=== PATIENT | male | born 1975 | race Two or more races ===

== ENCOUNTER 2020-01-10 09:33 | Inpatient (IN) | payer OTHER ==
--- OUTSIDE RECORDS SUMMARY | 2020-01-10 09:38 | XMS ---
:1975 Author Organization [facility] Support Name Relationship Address Phone LEEANN FLORES SELF / SAME PATIENT [phone] [place] [address] Re-disclosure Warning The records that you are about to access may contain information from federally- assisted alcohol or drug abuse programs. If such information is present, then the following federally mandated warning applies: This information has been disclosed to you from records protected by federal confidentiality rules (42 CFR part 2). The federal rules prohibit you from making any further disclosure of this information unless further disclosure is expressly permitted by the written consent of the person to whom it pertains or as otherwise permitted by 42 CFR part 2. A general authorization for the release of medical or other information is NOT sufficient for this purpose. The Federal rules restrict any use of the information to criminally investigate or prosecute any alcohol or drug abuse patient.The records that you are about to access may contain highly sensitive health information, the redisclosure of which is protected by Article 27-F of the [facility] Public Health law. If you continue you may haveaccess to information: Regarding HIV / AIDS; Provided by facilities licensed or operated by the [facility] Office of Mental Health; or Provided by the [facility] Office for People With Developmental Disabilities. If such information is present, then the following [facility] mandated warning applies: This information has been disclosed to you from confidential records which are protected by state law. State law prohibits you from making any further disclosure of this information without the specific written consent of the person to whom it pertains, or as otherwise permitted by law. Any unauthorized further disclosure in violation of state law may result in a fine or fci sentence or both. A general authorization for the release of medical or other information is NOT sufficient authorization for further disclosure. Insurance Providers Payer name Policy type Policy ID Covered Covered constitution party's Policy P janelle / Coverage constitution party ID relationship to Bradley Inf ormation type bradley MARKIE [id number] HEALTH NON CAP
--- NOTE | 2020-01-10 11:57 | BHS.RME ---
Substance Use & Tx History - Substance Use History Heroin Substance amount: 20 bags Frequency of use: Daily Substance route: Injection (ex: intravenous or skin popping) Date of Last Use: 01/09/20 Cocaine- Powder Substance amount: 7-8 bags Frequency of use: Daily Substance route: Injection (ex: intravenous or skin popping) Date of Last Use: 01/09/20 Alcohol Substance amount: 1pint vodka Frequency of use: Daily Substance route: Oral Date of Last Use: 01/09/20 - Last Treatment Date of last treatment: 2009 Where was last treatment: Detox Physical/Psych/Mental Status - Behavior General Behavior: Increased activity (restlessness, agitation) Eye Contact: Normal Other Behaviors: Mannerisms - Cooperativeness Cooperativeness: Cooperative - Thinking Thought Processes: Tight, Logical, Goal Directed Thought content: Future oriented - Physical Health Problems Is patient presently having any pain?: Yes Does patient presently have any injuries (include location): No Does patient currently have a fever: No CIWA Nausea/Vomitin Muscle Tremors: 2 Anxiety: 2 Agitation: 2 Paroxysmal Sweats: 1-Minimal Palms Moist Orientation: 0-Oriented Tacttile Disturbances: 1-Very Mild Itch/Numbness Auditory Disturbances: 0-None Visual Disturbances: 1-Very Mild Sensitivity Headache: 2-Mild CIWA-Ar Total Score: 13
--- NOTE | 2020-01-10 12:01 | HP ---
CIWA Score Nausea/Vomitin Muscle Tremors: 2 Anxiety: 2 Agitation: 2 Paroxysmal Sweats: 1-Minimal Palms Moist Orientation: 0-Oriented Tacttile Disturbances: 1-Very Mild Itch/Numbness Auditory Disturbances: 0-None Visual Disturbances: 1-Very Mild Sensitivity Headache: 2-Mild CIWA-Ar Total Score: 13 - Admission Criteria OASAS Guidelines: Admission for Medically Managed Detox: Requires at least one of the followin. CIWA greater than 12 2. Seizures within the past 24 hours 3. Delirium tremens within the past 24 hours 4. Hallucinations within the past 24 hours 5. Acute intervention needed for co occurring medical disorder 6. Acute intervention needed for co occurring psychiatric disorder 7. Severe withdrawal that cannot be handled at a lower level of care (continued vomiting, continued diarrhea, abnormal vital signs) requiring intravenous medication and/or fluids 8. Patient presents the following: CIWA greater than 12 Admission Criteria Met: Admission criteria met Admission ROS S - HPI Chief Complaint: Alcohol withdrawal Allergies/Adverse Reactions: Allergies Allergy/AdvReac Type Severity Reaction Status Date / Time No Known Allergies Allergy Verified 01/10/20 12:15 History of Present Illness: Patient is on methadone maintenance 170mg but has been using 20 bags of heroin intravenously daily, today, he presents for alcohol detox. Patient reports he was given a take home bottle for today but he went to [facility] last nigh t for alcohol intoxication so he missed taking his dose today. He denies h/o OD. He reports blackout a longtime ago, denies seizures. Exam Limitations: No Limitations - Ebola screening Have you traveled outside of the country in the last 21 days: No - Review of Systems Constitutional: Chills, Unintentional Wgt. Loss EENT: reports: Blurred Vision, Recent change in vision Respiratory: reports: No Symptoms reported Cardiac: reports: No Symptoms Reported GI: reports: Nausea, Abdominal cramping : reports: No Symptoms Reported Musculoskeletal: reports: Back Pain, Joint Pain, Muscle Pain, Muscle Weakness Integumentary: reports: Sweating Neuro: reports: Headache, Tremors Endocrine: reports: No Symptoms Reported Hematology: reports: No Symptoms Reported Psychiatric: reports: Anxious, Depressed Other Systems: Reviewed and Negative Patient History - Patient Medical History Hx Anemia: No Hx Asthma: No Hx Chronic Obstructive Pulmonary Disease (COPD): No Hx Cancer: No Hx Cardiac Disorders: No Hx Congestive Heart Failure: No Hx Hypertension: No Hx Hypercholesterolemia: No Hx Pacemaker: No HX Cerebrovascular Accident: No Hx Seizures: No Hx Dementia: No Hx Diabetes: No Hx Gastrointestinal Disorders: No Hx Liver Disease: Yes Hx Genitourinary Disorders: No Hx Sexually Transmitted Disorders: No Hx Renal Disease (ESRD): No Hx Thyroid Disease: No Hx Human Immunodeficiency Virus (HIV): No Hx Hepatitis C: Yes Hx Depression: Yes Hx Suicide Attempt: No Hx Bipolar Disorder: Yes Hx Schizophrenia: Yes - Patient Surgical History Past Surgical History: No - PPD History Previous Implant?: Yes Documented Results: Negative w/o proof Implanted On Prior [facility] Admission?: No PPD to be Administered?: Yes - Smoking Cessation Smoking history: Current every day smoker Have you smoked in the past 12 months: Yes Aproximately how many cigarettes per day: 20 Hx Chewing Tobacco Use: No Initiated information on smoking cessation: Yes 'Breaking Loose' booklet given: 01/10/20 - Substances abused Heroin Substance route: Injection Frequency: Daily Amount used: 2 bundles Age of first use: 20 Date of last use: 01/09/20 Alcohol Substance route: Oral Frequency: Daily Amount used: vodk- 1pt Age of first use: 21 Date of last use: 01/09/20 Cocaine Substance route: Injection Frequency: Daily Amount used: $60 Age of first use: 20 Date of last use: 01/09/20 Admission Physical Exam BHS - Physical General Appearance: Yes: No Apparent Distress HEENTM: Yes: Hearing grossly Normal, Normocephalic, Pharynx Normal Respiratory: Yes: Chest Non-Tender, Lungs Clear, Normal Breath Sounds, No Respiratory Distress Neck: Yes: No masses,lesions,Nodules, Supple Breast: Yes: Breast Exam Deferred Cardiology: Yes: Regular Rhythm, Regular Rate, S1, S2 Abdominal: Yes: Normal Bowel Sounds, Non Tender, Soft Genitourinary: Yes: Within Normal Limits Back: Yes: Normal Inspection Musculoskeletal: Yes: full range of Motion, Gait Steady, Pelvis Stable, Back pain, Other (RLE scar) Extremities: Yes: Tremors Neurological: Yes: resin painter II-XII NML intact, Fully Oriented, Alert, Motor Strength 5/5, Normal Mood/Affect, Normal Response Integumentary: Yes: Cold, Track [place] Lymphatic: Yes: Within Normal Limits - Diagnostic (1) Alcohol dependence with withdrawal, uncomplicated Current Visit: Yes Status: Acute (2) Nicotine dependence with withdrawal Current Visit: Yes Status: Acute (3) Methadone maintenance therapy patient Current Visit: Yes Status: Chronic (4) Cocaine abuse Current Visit: Yes Status: Acute (5) Marijuana abuse Current Visit: Yes Status: Acute (6) Hep C w/o coma, chronic Current Visit: Yes Status: Chronic Cleared for Admission S - Detox or Rehab [facility] Level of Care: Medically Managed Detox Regimen/Protocol: Librium Claeared for Rehab Admission: No Breathalyzer - Breathalyzer Breathalyzer: 0 Urine Drug Screen - Test Device Lot number: [id number] Expiration date: 07/28/21 - Control Is test valid?: Yes - Results Drug screen NEGATIVE: No Urine drug screen results: THC-Marijuana, VITALIY-Cocaine, FEN-Fentanyl, MOP- Opiates, MTD-Methadone Inpatient Rehab Admission - Rehab Decision to Admit Inpatient rehab admission?: No
[2020-01-10] MEDS ORDERED: MAGNESIUM HYDROX 2400MG/30ML ORAL SUSPENSION 30 ML CUP PO PRN (12:34)
[2020-01-10] MEDS ORDERED: MAG HYDROX/AL HYDROX/SIMETH 30 ML UNIT-DOSE CUP PO PRN (12:34)
[2020-01-10] MEDS ORDERED: MAGNESIUM CITRATE 300 ML BOTTLE PO PRN (12:34)
[2020-01-10] MEDS ORDERED: ACETAMINOPHEN 325 MG TABLET (FP) PO PRN ×2 (12:34)
[2020-01-10] MEDS ORDERED: NICOTINE POLACRILEX 2 MG GUM BUC PRN (12:34)
[2020-01-10] MEDS ORDERED: BISMUTH SUBSALICYLATE 524 MG/30 ML UD PO PRN (12:34)
[2020-01-10] MEDS ORDERED: ONDANSETRON *ODT* 4 MG TABLET SL PRN (12:34)
[2020-01-10] MEDS ORDERED: METHOCARBAMOL 500 MG TABLET PO PRN (12:34)
[2020-01-10] MEDS ORDERED: MENTHOL/PHENOL 1 EACH UD MM PRN (12:34)
[2020-01-10] MEDS ORDERED: IBUPROFEN 400 MG TABLET (FP) PO PRN (12:34)
[2020-01-10 12:35] VITALS: BMI 31.4
--- OUTSIDE RECORDS SUMMARY | 2020-01-10 12:36 | XMS ---
:1975 Author Organization [facility] Support Name Relationship Address Phone LEEANN FLORES SELF / SAME PATIENT [phone] [place] [address] Re-disclosure Warning The records that you are [...] is protected by Article 27-F of the [facility] Public Health law. If you continue you may haveaccess to information: Regarding HIV / AIDS; Provided by facilities licensed or operated by the [facility] Office of Mental Health; or Provided by the [facility] Office for People With Developmental Disabilities. If such information is present, then the following [facility] mandated warning applies: This information has [...] law may result in a fine or longterm sentence or both. A general authorization for the release of medical or other information is NOT sufficient authorization for further disclosure. Insurance Providers Payer name Policy type Policy ID Covered Covered green party's Policy P janelle / Coverage green party ID relationship to Bradley Inf ormation type bradley MARKIE [id number] HEALTH NON CAP
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
[2020-01-10] MEDS: chlordiazePOXIDE HCL 25 MG CAPSULE PO PRN (14:03)
[2020-01-10] MEDS ORDERED: METHADONE HCL 10 MG TABLET PO ONE (14:13)
[2020-01-10] MEDS: hydrOXYzine PAMOATE 25 MG CAPSULE (FP) PO PRN (18:05)
[2020-01-10] MEDS: chlordiazePOXIDE HCL 25 MG CAPSULE PO SCH ×2 (18:05→22:18)
[2020-01-10] MEDS: QUEtiapine FUMARATE 200 MG TABLET PO SCH (22:18)
[2020-01-10] MEDS: THIAMINE HCL 100 MG TABLET (FP) PO SCH (22:18)
[2020-01-10] MEDS: MELATONIN 5 MG TABLETS PO SCH (22:18)
[2020-01-10] MEDS: SUVOREXANT 10 MG TABLET PO PRN (22:19)
[2020-01-11] MEDS ORDERED: METHADONE HCL 10 MG TABLET ONE (04:24)
[2020-01-11] MEDS ORDERED: METHADONE HCL 40 MG DISPERSABLE TABLET ONE (04:24)
[2020-01-11] MEDS ORDERED: METHADONE HCL 40 MG DISPERSABLE TABLET PO SCH (06:00)
[2020-01-11] MEDS: METHADONE 160 MG, METHADONE 10 MG PO SCH (06:08)
[2020-01-11] MEDS: chlordiazePOXIDE HCL 25 MG CAPSULE PO SCH ×4 (06:09→22:14)
--- NOTE | 2020-01-11 09:25 | PN ---
[facility] CIWA - CIWA Score Nausea/Vomitin-Mild Nausea/No Vomiting Muscle Tremors: 2 Anxiety: 2 Agitation: 2 Paroxysmal Sweats: No Perspiration Orientation: 0-Oriented Tacttile Disturbances: 1-Very Mild Itch/Numbness Auditory Disturbances: 0-None Visual Disturbances: 0-None Headache: 2-Mild CIWA-Ar Total Score: 10 S Progress Note (SOAP) Subjective: alert,irritable,anxious,interrupted sleep,aching pain in the body and back Objective: 01/11/20 13:29 Vital Signs Temperature 97.3 F L 01/11/20 12:35 Pulse Rate 83 01/11/20 12:35 Respiratory Rate 18 01/11/20 12:35 Blood Pressure 88/49 L 01/11/20 12:35 O2 Sat by Pulse Oximetry (%) 99 01/11/20 12:35 Laboratory Last Values WBC 5.5 K/mm3 (4.0-10.0) 01/11/20 08:30 RBC 4.32 M/mm3 (4.00-5.60) 01/11/20 08:30 Hgb 12.1 GM/dL (11.7-16.9) 01/11/20 08:30 Hct 36.2 % (35.4-49) 01/11/20 08:30 MCV 83.9 fl (80-96) 01/11/20 08:30 MCH 28.0 pg (25.7-33.7) 01/11/20 08:30 MCHC 33.4 g/dl (32.0-35.9) 01/11/20 08:30 RDW 13.4 % (11.9-15.9) 01/11/20 08:30 Plt Count 304 K/MM3 (134-434) 01/11/20 08:30 MPV 8.5 fl (7.5-11.1) 01/11/20 08:30 Sodium 144 mmol/L (136-145) 01/11/20 08:30 Potassium 4.3 mmol/L (3.5-5.1) 01/11/20 08:30 Chloride 111 mmol/L (98-107) H 01/11/20 08:30 Carbon Dioxide 26 mmol/L (21-32) 01/11/20 08:30 Anion Gap 7 MMOL/L (8-16) L 01/11/20 08:30 BUN 15.3 mg/dL (7-18) 01/11/20 08:30 Creatinine 0.9 mg/dL (0.55-1.3) 01/11/20 08:30 Est GFR (CKD-EPI)AfAm 121.67 01/11/20 08:30 Est GFR (CKD-EPI)NonAf 104.98 01/11/20 08:30 Random Glucose 101 mg/dL (74-106) 01/11/20 08:30 Calcium 8.7 mg/dL (8.5-10.1) 01/11/20 08:30 Total Bilirubin 0.2 mg/dL (0.2-1) 01/11/20 08:30 AST 53 U/L (15-37) H 01/11/20 08:30 ALT 86 U/L (13-61) H 01/11/20 08:30 Alkaline Phosphatase 79 U/L (45-117) 01/11/20 08:30 Total Protein 7.2 g/dl (6.4-8.2) 01/11/20 08:30 Albumin 3.3 g/dl (3.4-5.0) L 01/11/20 08:30 Syphilis Serology Non-reactive (NONREACTIVE) 01/10/20 08:30 HIV Ag/Ab Combo Qual Negative (NEGATIVE) 01/11/20 08:30 Assessment: 01/11/20 13:30 withdrawal symptom Plan: continue detox librium regimen,continue methadone 170 mgs po daily methadone maintenance
[2020-01-11] MEDS: FLUoxetine HCL 20 MG CAPSULE PO SCH (10:16)
[2020-01-11] MEDS: PRENATAL VITAMINS W/ FOLIC ACID TABLET (FP) PO SCH (10:17)
[2020-01-11] MEDS: NICOTINE 7 MG/24 HOURS TOPICAL PATCH TD SCH (10:18)
[2020-01-11 12:24] LABS: HEMATOCRIT 36.2 % (35.4-49); HEMOGLOBIN 12.1 GM/dL (11.7-16.9); MCHC 33.4 g/dl (32.0-35.9); MEAN CELL VOLUME 83.9 fl (80-96); MEAN PLT VOLUME 8.5 fl (7.5-11.1); PLATELET COUNT 304 K/MM3 (134-434); RBC 4.32 M/mm3 (4.00-5.60); RDW 13.4 % (11.9-15.9); WHITE BLOOD COUNT 5.5 K/mm3 (4.0-10.0)
[2020-01-11 12:55] LABS: ALBUMIN 3.3 g/dl (3.4-5.0); BILIRUBIN,TOTAL 0.2 mg/dL (0.2-1); BLOOD UREA NITROGEN 15.3 mg/dL (7-18); CALCIUM 8.7 mg/dL (8.5-10.1); CREATININE 0.9 mg/dL (0.55-1.3); POTASSIUM 4.3 mmol/L (3.5-5.1); TOT PROT 7.2 g/dl (6.4-8.2)
[2020-01-11] MEDS: chlordiazePOXIDE HCL 25 MG CAPSULE PO PRN (14:48)
[2020-01-11] MEDS: hydrOXYzine PAMOATE 25 MG CAPSULE (FP) PO PRN (17:19)
[2020-01-11] MEDS: SUVOREXANT 10 MG TABLET PO PRN (22:14)
[2020-01-11] MEDS: MELATONIN 5 MG TABLETS PO SCH (22:14)
[2020-01-11] MEDS: THIAMINE HCL 100 MG TABLET (FP) PO SCH (22:14)
[2020-01-11] MEDS: QUEtiapine FUMARATE 200 MG TABLET PO SCH (22:14)
[2020-01-12] MEDS ORDERED: METHADONE HCL 10 MG TABLET ONE (04:57)
[2020-01-12] MEDS ORDERED: METHADONE HCL 40 MG DISPERSABLE TABLET ONE (04:57)
[2020-01-12] MEDS: chlordiazePOXIDE HCL 25 MG CAPSULE PO SCH ×4 (06:05→22:08)
[2020-01-12] MEDS: METHADONE 160 MG, METHADONE 10 MG PO SCH (06:05)
--- NOTE | 2020-01-12 09:35 | PN ---
[facility] CIWA - CIWA Score Nausea/Vomitin-Mild Nausea/No Vomiting Muscle Tremors: 2 Anxiety: 2 Agitation: 2 Paroxysmal Sweats: No Perspiration Orientation: 0-Oriented Tacttile Disturbances: 1-Very Mild Itch/Numbness Auditory Disturbances: 0-None Visual Disturbances: 0-None Headache: 1-Very Mild CIWA-Ar Total Score: 9 S Progress Note (SOAP) Subjective: alert,irritable,anxious,interrupted sleep,aching pain, Objective: 01/12/20 14:28 Vital Signs Temperature 97.3 F L 01/12/20 12:45 Pulse Rate 83 01/12/20 12:45 Respiratory Rate 18 01/12/20 12:45 Blood Pressure 124/73 01/12/20 12:45 O2 Sat by Pulse Oximetry (%) 97 01/12/20 12:45 Laboratory Last Values WBC 5.5 K/mm3 (4.0-10.0) 01/11/20 08:30 RBC 4.32 M/mm3 (4.00-5.60) 01/11/20 08:30 Hgb 12.1 GM/dL (11.7-16.9) 01/11/20 08:30 Hct 36.2 % (35.4-49) 01/11/20 08:30 MCV 83.9 fl (80-96) 01/11/20 08:30 MCH 28.0 pg (25.7-33.7) 01/11/20 08:30 MCHC 33.4 g/dl (32.0-35.9) 01/11/20 08:30 RDW 13.4 % (11.9-15.9) 01/11/20 08:30 Plt Count 304 K/MM3 (134-434) 01/11/20 08:30 MPV 8.5 fl (7.5-11.1) 01/11/20 08:30 Sodium 144 mmol/L (136-145) 01/11/20 08:30 Potassium 4.3 mmol/L (3.5-5.1) 01/11/20 08:30 Chloride 111 mmol/L (98-107) H 01/11/20 08:30 Carbon Dioxide 26 mmol/L (21-32) 01/11/20 08:30 Anion Gap 7 MMOL/L (8-16) L 01/11/20 08:30 BUN 15.3 mg/dL (7-18) 01/11/20 08:30 Creatinine 0.9 mg/dL (0.55-1.3) 01/11/20 08:30 Est GFR (CKD-EPI)AfAm 121.67 01/11/20 08:30 Est GFR (CKD-EPI)NonAf 104.98 01/11/20 08:30 Random Glucose 101 mg/dL (74-106) 01/11/20 08:30 Calcium 8.7 mg/dL (8.5-10.1) 01/11/20 08:30 Total Bilirubin 0.2 mg/dL (0.2-1) 01/11/20 08:30 AST 53 U/L (15-37) H 01/11/20 08:30 ALT 86 U/L (13-61) H 01/11/20 08:30 Alkaline Phosphatase 79 U/L (45-117) 01/11/20 08:30 Total Protein 7.2 g/dl (6.4-8.2) 01/11/20 08:30 Albumin 3.3 g/dl (3.4-5.0) L 01/11/20 08:30 Syphilis Serology Non-reactive (NONREACTIVE) 01/10/20 08:30 HIV Ag/Ab Combo Qual Negative (NEGATIVE) 01/11/20 08:30 Assessment: 01/12/20 14:30 withdrawal symptom Plan: continue detox librium regimen,continue methadone 170 mgs po daily maintenance
[2020-01-12] MEDS: NICOTINE 7 MG/24 HOURS TOPICAL PATCH TD SCH (10:25)
[2020-01-12] MEDS: FLUoxetine HCL 20 MG CAPSULE PO SCH (10:25)
[2020-01-12] MEDS: PRENATAL VITAMINS W/ FOLIC ACID TABLET (FP) PO SCH (10:25)
[2020-01-12] MEDS: SUVOREXANT 10 MG TABLET PO PRN (22:07)
[2020-01-12] MEDS: THIAMINE HCL 100 MG TABLET (FP) PO SCH (22:08)
[2020-01-12] MEDS: QUEtiapine FUMARATE 200 MG TABLET PO SCH (22:08)
[2020-01-12] MEDS: MELATONIN 5 MG TABLETS PO SCH (22:08)
[2020-01-13] MEDS ORDERED: chlordiazePOXIDE HCL 10 MG CAPSULE PO PRN
[2020-01-13] MEDS ORDERED: METHADONE HCL 40 MG DISPERSABLE TABLET ONE (04:42)
[2020-01-13] MEDS ORDERED: METHADONE HCL 10 MG TABLET ONE (04:42)
[2020-01-13] MEDS: chlordiazePOXIDE HCL 10 MG CAPSULE PO SCH ×4 (05:11→22:05)
[2020-01-13] MEDS: METHADONE 160 MG, METHADONE 10 MG PO SCH (05:11)
--- NOTE | 2020-01-13 08:35 | PN ---
[facility] CIWA - CIWA Score Nausea/Vomitin-Mild Nausea/No Vomiting Muscle Tremors: 2 Anxiety: 2 Agitation: 2 Paroxysmal Sweats: No Perspiration Orientation: 0-Oriented Tacttile Disturbances: 1-Very Mild Itch/Numbness Auditory Disturbances: 0-None Visual Disturbances: 0-None Headache: 1-Very Mild CIWA-Ar Total Score: 9 BHS Progress Note (SOAP) Subjective: alert,irritable,anxious,interrupted sleep,aching pain, Objective: 01/13/20 10:34 Vital Signs Temperature 97.5 F L 01/13/20 09:00 Pulse Rate 90 01/13/20 09:00 Respiratory Rate 18 01/13/20 09:00 Blood Pressure 98/61 01/13/20 09:00 O2 Sat by Pulse Oximetry (%) 97 01/13/20 06:17 Assessment: 01/13/20 10:34 withdrawal symptom Plan: continue detox librium regimen,continue methadone 170 mgs po dailly maintenance
[2020-01-13] MEDS: FLUoxetine HCL 20 MG CAPSULE PO SCH (10:43)
[2020-01-13] MEDS: NICOTINE 7 MG/24 HOURS TOPICAL PATCH TD SCH (10:44)
[2020-01-13] MEDS: PRENATAL VITAMINS W/ FOLIC ACID TABLET (FP) PO SCH (10:44)
[2020-01-13] MEDS: MELATONIN 5 MG TABLETS PO SCH (21:46)
[2020-01-13] MEDS: THIAMINE HCL 100 MG TABLET (FP) PO SCH (21:46)
[2020-01-13] MEDS: QUEtiapine FUMARATE 200 MG TABLET PO SCH (21:46)
[2020-01-13] MEDS: SUVOREXANT 10 MG TABLET PO PRN (21:48)
[2020-01-14] MEDS ORDERED: METHADONE HCL 10 MG TABLET ONE (04:57)
[2020-01-14] MEDS ORDERED: METHADONE HCL 40 MG DISPERSABLE TABLET ONE (04:58)
[2020-01-14] MEDS: METHADONE 160 MG, METHADONE 10 MG PO SCH (05:17)
[2020-01-14] MEDS: chlordiazePOXIDE HCL 10 MG CAPSULE PO SCH ×2 (05:18→18:31)
--- NOTE | 2020-01-14 10:22 | PN ---
[facility] CIWA - CIWA Score Nausea/Vomitin-No Nausea/No Vomiting Muscle Tremors: 2 Anxiety: 2 Agitation: 1-Slight > Activity Paroxysmal Sweats: No Perspiration Orientation: 0-Oriented Tacttile Disturbances: 0-None Auditory Disturbances: 0-None Visual Disturbances: 0-None Headache: 1-Very Mild CIWA-Ar Total Score: 6 BHS Progress Note (SOAP) Subjective: alert,irritable,anxious,interrupted sleep,aching pain Objective: 01/14/20 14:08 Vital Signs Temperature 97.7 F 01/14/20 12:30 Pulse Rate 94 H 01/14/20 12:30 Respiratory Rate 20 01/14/20 12:30 Blood Pressure 99/65 01/14/20 12:30 O2 Sat by Pulse Oximetry (%) 98 01/14/20 12:30 Assessment: 01/14/20 14:08 withdrawal symptom Plan: continue detox librium regimen,continue methadone maintenance 170 mgs po daily,psychiatric evaluation for insomnia,discharge in am
[2020-01-14] MEDS: NICOTINE 7 MG/24 HOURS TOPICAL PATCH TD SCH (10:52)
[2020-01-14] MEDS: PRENATAL VITAMINS W/ FOLIC ACID TABLET (FP) PO SCH (10:52)
[2020-01-14] MEDS: FLUoxetine HCL 20 MG CAPSULE PO SCH (10:52)
--- NOTE | 2020-01-14 13:56 | PN ---
Psychiatric Progress Note Vital Signs: Vital Signs Period Temp Pulse Resp BP Sys/[place] Pulse Ox Last 24 Hr 97.1 F-97.9 F 85-105 18-20 90-124/60-76 96-99 Date of Session: 01/14/20 Chief Complaint:: 'I'm not sleeping." HPI: Patient admitted to for alcohol, opioid and cocaine dependence. ROS: Patient is ambulatory, alert +oriented X3. Current Medications: Active Medications Generic Name Dose Route Start Last Admin Trade Name Freq PRN Reason Stop Dose Admin Acetaminophen 650 mg 01/10/20 12:34 Tylenol - PO Q6H PRN PAIN LEVEL 4 - 6 Acetaminophen 650 mg 01/10/20 12:34 Tylenol - PO Q6H PRN FEVER Al Hydroxide/Mg Hydroxide 30 ml 01/10/20 12:34 Mylanta Oral Suspension - PO Q6H PRN DYSPEPSIA Bismuth Subsalicylate 524 mg 01/10/20 12:34 Pepto-Bismol - PO Q1H PRN DIARRHEA Chlordiazepoxide HCl 10 mg 01/14/20 05:00 01/14/20 05:18 Librium - PO 01/14/20 17:01 10 mg Q12H BERNARDINO Administration Chlordiazepoxide HCl 10 mg 01/15/20 05:00 Librium - PO 01/15/20 05:01 ONCE@0500 ONE Eucalyptus/Menthol/Phenol/Sorbitol 1 each 01/10/20 12:34 Cepastat Lozenge - MM 01/16/20 12:38 Q4H PRN SORE THROAT Fluoxetine HCl 20 mg 01/11/20 10:00 01/14/20 10:52 Prozac - PO 20 mg DAILY BERNARDINO Administration Hydroxyzine Pamoate 25 mg 01/10/20 12:34 01/11/20 17:19 Vistaril - PO 01/16/20 12:38 25 mg Q4HWA PRN Administration ANXIETY Ibuprofen 400 mg 01/10/20 12:34 Motrin - PO Q6H PRN PAIN LEVEL 1 - 3 Magnesium Citrate 300 ml 01/10/20 12:34 Citroma - PO Q48H PRN CONSTIPATION Magnesium Hydroxide 30 ml 01/10/20 12:34 Milk Of Magnesia - PO PRN PRN CONSTIPATION Melatonin 5 mg 01/10/20 22:00 01/13/20 21:46 Melatonin PO 5 mg HS BERNARDINO Administration Methadone HCl 160 mg/ 170 mg 01/11/20 06:00 01/14/20 05:17 Methadone HCl 10 mg PO 170 mg DAILY@0600 BERNARDINO Administration Methocarbamol 500 mg 01/10/20 12:34 Robaxin - PO 01/16/20 12:38 Q6H PRN MUSCLE SPASMS Nicotine 7 mg 01/11/20 10:00 01/14/20 10:52 Nicoderm Patch - TD 7 mg DAILY BERNARDINO Administration Nicotine Polacrilex 2 mg 01/10/20 12:34 Nicorette Gum - BUC Q2H PRN NICOTINE REPLACEMENT RX Ondansetron HCl 4 mg 01/10/20 12:34 Zofran Odt - SL Q8H PRN Nausea/Vomiting Multivit/Folic Acid/Iron 1 tab 01/11/20 10:00 01/14/20 10:52 Vitamins ([facility]) - PO 1 tab DAILY BERNARDINO Administration Quetiapine Fumarate 200 mg 01/10/20 22:00 01/13/20 21:46 Seroquel - PO 200 mg HS BERNARDINO Administration Suvorexant 10 mg 01/14/20 22:00 Belsomra PO HS PRN INSOMNIA Thiamine HCl 100 mg 01/10/20 22:00 01/13/20 21:46 Vitamin B1 - PO 100 mg HS BERNARDINO Administration Medication(s) Change(s): Yes. Will add Belsomra 10mg HS PRN. Current Side Effect: No Lab tests ordered: No Lab tests reviewed: Yes Provider note:: Chart reviewed. Dr. Reed's note read and appreciated. Patient reports poor sleep and is requesting an additional sleep aid. Will order Belsomra 10mg HS PRN. Patient also educated on the importance of proper sleep hygiene. Benefits and side effects discussed. Verbal consent given. Total face to face time:: 15 Mental Status Exam - Mental Status Exam Alert and Oriented to: Time, Place, Person Cognitive Function: Good Patient Appearance: Well Groomed Mood: Hopeful Affect: Appropriate Patient Behavior: Appropriate, Cooperative Speech Pattern: Appropriate Voice Loudness: Normal Thought Process: Intact, Goal Oriented Thought Disorder: Not Present Hallucinations: Denies Suicidal Ideation: Denies Homicidal Ideation: Denies Insight/Judgement: Poor Sleep: Poorly Appetite: Fair Muscle strength/Tone: Normal Gait/Station: Normal Psychiatric Treatment Plan - Problem List (1) Alcohol dependence with withdrawal, uncomplicated Current Visit: Yes (2) Cocaine dependence Current Visit: Yes (3) Substance-induced sleep disorder Current Visit: Yes (4) Schizoaffective disorder Current Visit: Yes (5) Opioid dependence on agonist therapy Current Visit: Yes
[2020-01-14] MEDS: hydrOXYzine PAMOATE 25 MG CAPSULE (FP) PO PRN (18:33)
[2020-01-14] MEDS: MELATONIN 5 MG TABLETS PO SCH (21:51)
[2020-01-14] MEDS: QUEtiapine FUMARATE 200 MG TABLET PO SCH (21:51)
[2020-01-14] MEDS: THIAMINE HCL 100 MG TABLET (FP) PO SCH (21:51)
[2020-01-14] MEDS ORDERED: SUVOREXANT 10 MG TABLET PO PRN (22:00)
[2020-01-15] MEDS ORDERED: METHADONE HCL 10 MG TABLET ONE (03:57)
[2020-01-15] MEDS ORDERED: METHADONE HCL 40 MG DISPERSABLE TABLET ONE (03:58)
[2020-01-15] MEDS ORDERED: chlordiazePOXIDE HCL 10 MG CAPSULE PO ONE (05:00)
[2020-01-15] MEDS: METHADONE 160 MG, METHADONE 10 MG PO SCH (05:06)
--- NOTE | 2020-01-15 08:28 | PN ---
[facility] CIWA - CIWA Score Nausea/Vomitin-No Nausea/No Vomiting Muscle Tremors: None Anxiety: 1-Mildly Anxious Agitation: 0-Normal Activity Paroxysmal Sweats: No Perspiration Orientation: 0-Oriented Tacttile Disturbances: 0-None Auditory Disturbances: 0-None Visual Disturbances: 0-None Headache: 0-None Present CIWA-Ar Total Score: 1 S Progress Note (SOAP) Subjective: alert,no complaint Objective: 01/15/20 11:10 Vital Signs Temperature 97.1 F L 01/15/20 08:40 Pulse Rate 80 01/15/20 08:40 Respiratory Rate 18 01/15/20 08:40 Blood Pressure 102/67 01/15/20 08:40 O2 Sat by Pulse Oximetry (%) 100 01/15/20 06:22 Assessment: 01/15/20 11:11 detox completed,no withdrawal symptom Plan: stable for discharge today,follow up with methadone maintenance
--- NOTE | 2020-01-15 08:28 | DS ---
[facility] Detox Discharge Summary Admission Date: 01/10/20 Discharge Date: 01/15/20 - History Present History: Alcohol Dependence, Cannabis Dependence, Cocaine Dependence, MMTP Additional Comments: alert,oriented x 3 ambulation on the unit lung clear on auscultation bilaterally abdomen soft,no distension,no pain, no tenderness stable for discharge today declined rehab follow up with after care program as arrangement ,methadone clinic total time of discharge spending 35 minutes Pertinent Past History: hepatitis c schizoaffective disorder - Physical Exam Results Vital Signs: Vital Signs Temperature 98.2 F 01/15/20 06:22 Pulse Rate 90 01/15/20 06:22 Respiratory Rate 18 01/15/20 06:22 Blood Pressure 112/76 01/15/20 06:22 O2 Sat by Pulse Oximetry (%) 100 01/15/20 06:22 Pertinent Admission Physical Exam Findings: withdrawal signs and symptom Vital Signs Temperature 97.1 F L 01/15/20 08:40 Pulse Rate 80 01/15/20 08:40 Respiratory Rate 18 01/15/20 08:40 Blood Pressure 102/67 01/15/20 08:40 O2 Sat by Pulse Oximetry (%) 100 01/15/20 06:22 Laboratory Last Values WBC 5.5 K/mm3 (4.0-10.0) 01/11/20 08:30 RBC 4.32 M/mm3 (4.00-5.60) 01/11/20 08:30 Hgb 12.1 GM/dL (11.7-16.9) 01/11/20 08:30 Hct 36.2 % (35.4-49) 01/11/20 08:30 MCV 83.9 fl (80-96) 01/11/20 08:30 MCH 28.0 pg (25.7-33.7) 01/11/20 08:30 MCHC 33.4 g/dl (32.0-35.9) 01/11/20 08:30 RDW 13.4 % (11.9-15.9) 01/11/20 08:30 Plt Count 304 K/MM3 (134-434) 01/11/20 08:30 MPV 8.5 fl (7.5-11.1) 01/11/20 08:30 Sodium 144 mmol/L (136-145) 01/11/20 08:30 Potassium 4.3 mmol/L (3.5-5.1) 01/11/20 08:30 Chloride 111 mmol/L (98-107) H 01/11/20 08:30 Carbon Dioxide 26 mmol/L (21-32) 01/11/20 08:30 Anion Gap 7 MMOL/L (8-16) L 01/11/20 08:30 BUN 15.3 mg/dL (7-18) 01/11/20 08:30 Creatinine 0.9 mg/dL (0.55-1.3) 01/11/20 08:30 Est GFR (CKD-EPI)AfAm 121.67 01/11/20 08:30 Est GFR (CKD-EPI)NonAf 104.98 01/11/20 08:30 Random Glucose 101 mg/dL (74-106) 01/11/20 08:30 Calcium 8.7 mg/dL (8.5-10.1) 01/11/20 08:30 Total Bilirubin 0.2 mg/dL (0.2-1) 01/11/20 08:30 AST 53 U/L (15-37) H 01/11/20 08:30 ALT 86 U/L (13-61) H 01/11/20 08:30 Alkaline Phosphatase 79 U/L (45-117) 01/11/20 08:30 Total Protein 7.2 g/dl (6.4-8.2) 01/11/20 08:30 Albumin 3.3 g/dl (3.4-5.0) L 01/11/20 08:30 Syphilis Serology Non-reactive (NONREACTIVE) 01/10/20 08:30 COVID-19 ([facility]) Not detected (Not Detected) 01/10/20 12:31 HIV Ag/Ab Combo Qual Negative (NEGATIVE) 01/11/20 08:30 - Treatment Hospital Course: Detox Protocol Followed, Detoxed Safely, Responded well, Discharged Condition Good Patient has Accepted a Rehab Referral to: declined - Medication Discharge Medications: Ambulatory Orders Fluoxetine HCl [Prozac -] 20 mg PO DAILY 01/10/20 Quetiapine Fumarate [Seroquel -] 200 mg PO HS 01/10/20 - Diagnosis (1) Alcohol dependence with withdrawal, uncomplicated Status: Acute (2) Cocaine abuse Status: Acute (3) Hepatitis C Status: Chronic (4) Methadone maintenance therapy patient Status: Chronic (5) Schizoaffective disorder Status: Chronic - AMA Did Patient Leave Against Medical Advice: No
[2020-01-15 09:26] VITALS: BP 102/67; PULSE 80; TEMP 97.1
== END 2020-01-15 09:53 | disposition home or self-care (01) | DRG 773 ==
LOC: YASAS 09:33 → Y3N 12:29
PROVIDERS: ADMIT Allergy & Immunology; ATTEND Allergy & Immunology
PROC: HZ2ZZZZ Detoxification Services for Substance Abuse Treatment (ICD-10-PCS; principal; 2020-01-10)
DX: F10.230 Alcohol dependence with withdrawal, uncomplicated (principal); F11.20 Opioid dependence, uncomplicated; F14.20 Cocaine dependence, uncomplicated; F12.20 Cannabis dependence, uncomplicated; F17.213 Nicotine dependence, cigarettes, with withdrawal; F25.9 Schizoaffective disorder, unspecified; F31.9 Bipolar disorder, unspecified; F19.282 Other psychoactive substance dependence with psychoactive substance-induced sleep disorder; F19.24 Other psychoactive substance dependence with psychoactive substance-induced mood disorder; B18.2 Chronic viral hepatitis C; Z91.410 Personal history of adult physical and sexual abuse
CPT/HCPCS: 36415; 80053; 85027; 86780; 87389; U0003

== ENCOUNTER 2021-04-03 10:49 | Inpatient (IN) | payer OTHER ==
[2021-04-03] MEDS ORDERED: P-EPHED 60MG/TRIPROLIDI 2.5MG TABLET PO PRN (12:10)
[2021-04-03] MEDS ORDERED: MAGNESIUM HYDROX 2400MG/30ML ORAL SUSPENSION 30 ML CUP PO PRN (12:10)
[2021-04-03] MEDS ORDERED: MAGNESIUM CITRATE 300 ML BOTTLE PO PRN (12:10)
[2021-04-03] MEDS ORDERED: LOPERAMIDE HCL 2 MG CAPSULE PO PRN (12:10)
[2021-04-03] MEDS ORDERED: IBUPROFEN 400 MG TABLET (FP) PO PRN (12:10)
[2021-04-03] MEDS ORDERED: guaiFENesin 200 MG/10 ML 10 ML UNIT-DOSE CUPS PO PRN (12:10)
[2021-04-03] MEDS ORDERED: MAG HYDROX/AL HYDROX/SIMETH 30 ML UNIT-DOSE CUP PO PRN (12:10)
[2021-04-03] MEDS ORDERED: ACETAMINOPHEN 325 MG TABLET (FP) PO PRN (12:10)
[2021-04-03 12:36] VITALS: BMI 31.4
[2021-04-03 15:11] LABS: HEMATOCRIT 25.7 % (35.4-49); HEMOGLOBIN 8.3 GM/dL (11.7-16.9); MCH 23.1 pg (25.7-33.7); MCHC 32.1 g/dl (32.0-35.9); MEAN CELL VOLUME 72.1 fl (80-96); MEAN PLT VOLUME 7.8 fl (7.5-11.1); PLATELET COUNT 309 10^3/uL (134-434); RBC 3.57 M/mm3 (4.00-5.60); RDW 15.5 % (11.9-15.9); WHITE BLOOD COUNT 4.8 K/mm3 (4.0-10.0)
[2021-04-03 15:28] LABS: BLOOD UREA NITROGEN 15.8 mg/dL (7-18); CALCIUM 8.7 mg/dL (8.5-10.1)
[2021-04-03 15:30] LABS: CREATININE 1.1 mg/dL (0.55-1.3)
[2021-04-03 15:34] LABS: BILIRUBIN,TOTAL 0.2 mg/dL (0.2-1)
[2021-04-03 15:36] LABS: SYPHILIS W/ RPR CONF NON-REACTIVE (NONREACTIVE)
[2021-04-03] MEDS: PRENATAL VITAMINS W/ FOLIC ACID TABLET (FP) PO SCH (15:38)
[2021-04-03] MEDS: NICOTINE 7 MG/24 HOURS TOPICAL PATCH TD SCH (15:38)
[2021-04-03] MEDS: hydrOXYzine PAMOATE 25 MG CAPSULE (FP) PO SCH ×3 (15:38→21:27)
[2021-04-03 16:04] LABS: HIV INTERPRETATION NEGATIVE (NEGATIVE)
[2021-04-03] MEDS: THIAMINE HCL 100 MG TABLET (FP) PO SCH (21:26)
[2021-04-03] MEDS: MELATONIN 5 MG TABLETS PO SCH (21:26)
[2021-04-03] MEDS: clonazePAM 0.5 MG ODT TABLETS SL SCH (21:27)
[2021-04-03] MEDS ORDERED: PATIENT'S OWN MEDICATION (NON-FORMULARY) (Zolpidem Tartrate [Ambien] 10 MG Tablet) PO SCH (22:00)
[2021-04-04] MEDS ORDERED: methaDONE HCL 10 MG TABLET PO SCH (06:00)
[2021-04-04] MEDS ORDERED: methaDONE HCL 10 MG TABLET ONE (06:17)
[2021-04-04] MEDS: hydrOXYzine PAMOATE 25 MG CAPSULE (FP) PO SCH ×5 (06:17→22:00)
[2021-04-04] MEDS ORDERED: methaDONE HCL 40 MG DISPERSABLE TABLET ONE (06:18)
[2021-04-04] MEDS: clonazePAM 0.5 MG ODT TABLETS SL SCH ×2 (09:58→21:33)
[2021-04-04] MEDS: PRENATAL VITAMINS W/ FOLIC ACID TABLET (FP) PO SCH (09:58)
[2021-04-04] MEDS: NICOTINE 7 MG/24 HOURS TOPICAL PATCH TD SCH (09:59)
[2021-04-04] MEDS: FERROUS SO4 325 MG TABLET (FP) PO SCH (17:51)
[2021-04-04] MEDS: THIAMINE HCL 100 MG TABLET (FP) PO SCH (21:33)
[2021-04-04] MEDS: MELATONIN 5 MG TABLETS PO SCH (21:33)
[2021-04-05 01:44] LABS: URINE APPEARANCE CLEAR; URINE BILIRUBIN NEGATIVE (NEGATIVE); URINE COLOR YELLOW; URINE GLUCOSE (UA) NEGATIVE (NEGATIVE); URINE KETONE NEGATIVE (NEGATIVE); URINE LEUK ESTERASE NEGATIVE (NEGATIVE); URINE NITRITE NEGATIVE (NEGATIVE); URINE PROTEIN NEGATIVE (NEGATIVE); URINE UROBILINOGEN 0.2 mg/dL (0.2-1.0)
[2021-04-05] MEDS ORDERED: methaDONE HCL 40 MG DISPERSABLE TABLET ONE (03:03)
[2021-04-05] MEDS ORDERED: methaDONE HCL 10 MG TABLET ONE (03:03)
[2021-04-05] MEDS: hydrOXYzine PAMOATE 25 MG CAPSULE (FP) PO SCH ×5 (06:10→21:20)
[2021-04-05] MEDS: FERROUS SO4 325 MG TABLET (FP) PO SCH ×3 (07:15→18:26)
[2021-04-05] MEDS: NICOTINE 10 MG CARTRIDGE (INHALER) IH PRN ×2 (07:20→11:42)
[2021-04-05] MEDS ORDERED: PT OWN MED DRAWER 7, Y5N ONE (09:13)
[2021-04-05] MEDS: PRENATAL VITAMINS W/ FOLIC ACID TABLET (FP) PO SCH (09:52)
[2021-04-05] MEDS: NICOTINE 7 MG/24 HOURS TOPICAL PATCH TD SCH (09:52)
[2021-04-05] MEDS: clonazePAM 0.5 MG ODT TABLETS SL SCH ×2 (09:53→21:20)
[2021-04-05] MEDS: FLUoxetine HCL 20 MG CAPSULE PO SCH (09:55)
[2021-04-05] MEDS: THIAMINE HCL 100 MG TABLET (FP) PO SCH (21:20)
[2021-04-05] MEDS: QUEtiapine FUMARATE 100 MG TABLET (FP) PO SCH (21:22)
[2021-04-06] MEDS ORDERED: methaDONE HCL 40 MG DISPERSABLE TABLET ONE (03:21)
[2021-04-06] MEDS ORDERED: methaDONE HCL 10 MG TABLET ONE (03:21)
[2021-04-06] MEDS: hydrOXYzine PAMOATE 25 MG CAPSULE (FP) PO SCH ×5 (06:29→21:29)
[2021-04-06] MEDS: FERROUS SO4 325 MG TABLET (FP) PO SCH ×3 (08:04→17:13)
[2021-04-06] MEDS: PRENATAL VITAMINS W/ FOLIC ACID TABLET (FP) PO SCH (09:59)
[2021-04-06] MEDS: FLUoxetine HCL 20 MG CAPSULE PO SCH (09:59)
[2021-04-06] MEDS: NICOTINE 7 MG/24 HOURS TOPICAL PATCH TD SCH (09:59)
[2021-04-06] MEDS: clonazePAM 0.5 MG ODT TABLETS SL SCH ×2 (09:59→21:29)
[2021-04-06] MEDS: NICOTINE 10 MG CARTRIDGE (INHALER) IH PRN (10:03)
[2021-04-06] MEDS: THIAMINE HCL 100 MG TABLET (FP) PO SCH (21:29)
[2021-04-06] MEDS: QUEtiapine FUMARATE 100 MG TABLET (FP) PO SCH (21:29)
[2021-04-07] MEDS ORDERED: methaDONE HCL 10 MG TABLET ONE (01:59)
[2021-04-07] MEDS ORDERED: methaDONE HCL 40 MG DISPERSABLE TABLET ONE (01:59)
[2021-04-07] MEDS: hydrOXYzine PAMOATE 25 MG CAPSULE (FP) PO SCH ×5 (06:11→21:17)
[2021-04-07] MEDS: FERROUS SO4 325 MG TABLET (FP) PO SCH ×3 (07:18→17:39)
[2021-04-07] MEDS: PRENATAL VITAMINS W/ FOLIC ACID TABLET (FP) PO SCH (10:07)
[2021-04-07] MEDS: FLUoxetine HCL 20 MG CAPSULE PO SCH (10:07)
[2021-04-07] MEDS: clonazePAM 0.5 MG ODT TABLETS SL SCH ×2 (10:07→21:17)
[2021-04-07] MEDS: NICOTINE 7 MG/24 HOURS TOPICAL PATCH TD SCH (10:07)
[2021-04-07] MEDS: NICOTINE 10 MG CARTRIDGE (INHALER) IH PRN (10:08)
[2021-04-07] MEDS: QUEtiapine FUMARATE 100 MG TABLET (FP) PO SCH (21:17)
[2021-04-07] MEDS: THIAMINE HCL 100 MG TABLET (FP) PO SCH (21:17)
[2021-04-08] MEDS ORDERED: methaDONE HCL 40 MG DISPERSABLE TABLET ONE (04:16)
[2021-04-08] MEDS ORDERED: methaDONE HCL 10 MG TABLET ONE (04:16)
[2021-04-08] MEDS: hydrOXYzine PAMOATE 25 MG CAPSULE (FP) PO SCH ×2 (06:12→10:10)
[2021-04-08 07:12] VITALS: BP 112/66; PULSE 75; TEMP 97.7
[2021-04-08] MEDS: FERROUS SO4 325 MG TABLET (FP) PO SCH ×2 (07:42→11:26)
[2021-04-08] MEDS: FLUoxetine HCL 20 MG CAPSULE PO SCH (10:10)
[2021-04-08] MEDS: PRENATAL VITAMINS W/ FOLIC ACID TABLET (FP) PO SCH (10:10)
[2021-04-08] MEDS: clonazePAM 0.5 MG ODT TABLETS SL SCH (10:10)
[2021-04-08] MEDS: NICOTINE 7 MG/24 HOURS TOPICAL PATCH TD SCH (10:10)
== END 2021-04-08 14:10 | disposition home or self-care (01) | DRG 772 ==
LOC: YASAS 10:49 → Y5N 13:09
PROVIDERS: ADMIT Allergy & Immunology; ATTEND Allergy & Immunology
PROC: HZ42ZZZ Group Counseling for Substance Abuse Treatment, Cognitive-Behavioral (ICD-10-PCS; principal; 2021-04-03)
DX: F10.20 Alcohol dependence, uncomplicated (principal); F11.20 Opioid dependence, uncomplicated; F14.20 Cocaine dependence, uncomplicated; F12.10 Cannabis abuse, uncomplicated; F17.210 Nicotine dependence, cigarettes, uncomplicated; F31.9 Bipolar disorder, unspecified; F41.9 Anxiety disorder, unspecified; F19.24 Other psychoactive substance dependence with psychoactive substance-induced mood disorder; F19.282 Other psychoactive substance dependence with psychoactive substance-induced sleep disorder; F25.9 Schizoaffective disorder, unspecified; D64.9 Anemia, unspecified; Z86.19 Personal history of other infectious and parasitic diseases; Z91.51 Personal history of suicidal behavior; Z56.0 Unemployment, unspecified
CPT/HCPCS: 36415; 80053; 81003; 85027; 86780; 86803; 87389; 87522; 87811; 93005; 93010

== ENCOUNTER 2024-06-10 11:36 | Inpatient (IN) | payer OTHER ==
[2024-06-10 12:04] VITALS: BMI 26.9
[2024-06-10] MEDS ORDERED: LOPERAMIDE HCL 2 MG CAPSULE PO PRN (12:14)
[2024-06-10] MEDS ORDERED: IBUPROFEN 400 MG TABLET (FP) PO PRN (12:14)
[2024-06-10] MEDS ORDERED: NICOTINE POLACRILEX 2 MG GUM BUC PRN (12:14)
[2024-06-10] MEDS ORDERED: MAG HYDROX/AL HYDROX/SIMETH 30 ML UNIT-DOSE CUP PO PRN (12:14)
[2024-06-10] MEDS ORDERED: guaiFENesin 600 MG TABLET.ER (FP) PO PRN (12:14)
[2024-06-10] MEDS ORDERED: MAGNESIUM HYDROX 2400MG/30ML ORAL SUSPENSION 30 ML CUP PO PRN (12:14)
[2024-06-10] MEDS ORDERED: BENZONATATE 200 MG CAPSULE PO PRN (12:14)
[2024-06-10] MEDS ORDERED: POLYETHYLENE GLYCOL (HEALTHYLAX) 3350 17 GM PACKET PO PRN (12:14)
[2024-06-10] MEDS ORDERED: NALOXONE (NARCAN) HCL 4 MG/0.1 ML SPRAY NS PRN (12:14)
[2024-06-10] MEDS ORDERED: BENZOCAINE/MENTHOL (CHLORASEPTIC ) LOZENGE MM PRN (12:14)
[2024-06-10] MEDS ORDERED: NICOTINE POLACRILEX 2 MG LOZENGE BC PRN (12:14)
[2024-06-10] MEDS ORDERED: IBUPROFEN 600 MG TABLET (FP) PO PRN (12:14)
[2024-06-10] MEDS: SULFAMETHOXAZOLE/TRIMETHOPRIM 800MG/160MG D.S. TABLET PO SCH (14:36)
[2024-06-10] MEDS: clonazePAM 1 MG ODT TABLETS SL ONE (14:53)
[2024-06-10] MEDS ORDERED: MELATONIN 5 MG TABLETS PO SCH (22:00)
[2024-06-10] MEDS: SUVOREXANT 5 MG TABLET PO PRN (22:23)
[2024-06-10] MEDS: THIAMINE 100 MG TABLET PO SCH (22:23)
[2024-06-10] MEDS: clonazePAM 1 MG ODT TABLETS SL SCH (22:23)
[2024-06-10] MEDS: QUEtiapine FUMARATE 200 MG TABLET PO SCH (22:24)
[2024-06-11] MEDS ORDERED: methaDONE HCL 40 MG DISPERSABLE TABLET PO SCH (06:00)
[2024-06-11 09:35] LABS: CHLORIDE 105 mmol/L (98-107); SODIUM 136 mmol/L (136-145)
[2024-06-11 09:40] LABS: HEMATOCRIT 28.8 % (35.4-49); MCH 23.8 pg (25.7-33.7); MCHC 31.2 g/dl (32.0-35.9); MEAN CELL VOLUME 76.5 fl (80-96); MEAN PLT VOLUME 7.5 fl (7.5-11.1); PLATELET COUNT 288 10^3/uL (134-434); RBC 3.77 M/mm3 (4.00-5.60); RDW 15.7 % (11.9-15.9); WHITE BLOOD COUNT 6.2 K/mm3 (4.0-10.0)
[2024-06-11 09:55] LABS: CALCIUM 8.6 mg/dL (8.5-10.1)
[2024-06-11 09:56] LABS: ALBUMIN 2.8 g/dl (3.4-5.0); ANION GAP 6 mmol/L (4-13); BLOOD UREA NITROGEN 19.2 mg/dL (7-18); CO2 25 mmol/L (21-32); GLUCOSE,RANDOM 102 mg/dL (74-106)
[2024-06-11 09:57] LABS: SGPT/ALT 31 U/L (13-61)
[2024-06-11 09:58] LABS: BILIRUBIN,TOTAL 0.3 mg/dL (0.2-1); SGOT/AST 25 U/L (15-37)
[2024-06-11 10:00] LABS: ALK PHOS 68 U/L (45-117); CREATININE 0.9 mg/dL (0.55-1.3); TOT PROT 7.5 g/dl (6.4-8.2)
[2024-06-11] MEDS: PRENATAL VITAMINS W/ FOLIC ACID TABLET (FP) PO SCH (11:00)
[2024-06-11] MEDS: FLUoxetine HCL 20 MG CAPSULE PO SCH (11:00)
[2024-06-11] MEDS: SULFAMETHOXAZOLE/TRIMETHOPRIM 800MG/160MG D.S. TABLET PO SCH (11:16)
[2024-06-12] MEDS ORDERED: methaDONE HCL 10 MG TABLET PO SCH (09:48)
[2024-06-12] MEDS: methaDONE 40 MG, methaDONE 10 MG PO SCH (11:09)
[2024-06-12] MEDS: clonazePAM 0.5 MG ODT TABLETS SL SCH (11:10)
[2024-06-12] MEDS: QUEtiapine FUMARATE 200 MG TABLET PO SCH ×2 (11:10→21:28)
[2024-06-12] MEDS: ACETAMINOPHEN 325 MG TABLET (FP) PO PRN (21:59)
[2024-06-15 05:31] VITALS: RESP 17; TEMP 97.3
[2024-06-15] MEDS ORDERED: methaDONE HCL 10 MG TABLET PO ONE (10:36)
[2024-06-15] MEDS: methaDONE 40 MG, methaDONE 10 MG PO ONE (11:01)
[2024-06-15 11:04] VITALS: BP 121/66; PULSE 94
== END 2024-06-15 11:18 | disposition left against medical advice (07) | DRG 770 ==
LOC: YASAS 11:36 → Y3NR 13:11 → Y3W 06-11 12:25
PROVIDERS: ADMIT Psychiatry & Neurology Pain Medicine; ATTEND Psychiatry & Neurology Pain Medicine
PROC: HZ42ZZZ Group Counseling for Substance Abuse Treatment, Cognitive-Behavioral (ICD-10-PCS; principal; 2024-06-10)
DX: F11.20 Opioid dependence, uncomplicated (principal); F14.20 Cocaine dependence, uncomplicated; F17.210 Nicotine dependence, cigarettes, uncomplicated; F31.9 Bipolar disorder, unspecified; F25.0 Schizoaffective disorder, bipolar type; F19.282 Other psychoactive substance dependence with psychoactive substance-induced sleep disorder; F19.24 Other psychoactive substance dependence with psychoactive substance-induced mood disorder; G47.00 Insomnia, unspecified; D64.9 Anemia, unspecified; B18.2 Chronic viral hepatitis C
CPT/HCPCS: 36415; 73560-TC-RT-FY; 80053; 80305; 80307; 85027; 86780; 87811; 93005; 93010